=== PATIENT | female | born 1995 | race Caucasian/White ===

== ENCOUNTER 2017-08-31 11:28 | Emergency (ER) | payer MEDICAID ==
[~2017-08-31] VITALS: Ht 162.6 cm; Wt 68.2 kg
[2017-08-31 12:36] VITALS: BP 119/73
== END 2017-08-31 12:45 | disposition home or self-care (01) ==
LOC: ER 11:28
DX: S93.402A Sprain of unspecified ligament of left ankle, initial encounter (principal); X58.XXXA Exposure to other specified factors, initial encounter; Y93.02 Activity, running; Y92.89 Other specified places as the place of occurrence of the external cause; Y99.8 Other external cause status
CPT/HCPCS: 73610; 99284; A6449